=== PATIENT | female | born 1985 | race Caucasian/White ===

== ENCOUNTER → 2021-02-06 14:08 | Outpatient (CLI) | payer BC, SELFPAY ==
[2021-02-11 13:15] LABS: HPV APTIMA, High Risk Negative (Negative)
== END ==
PROVIDERS: Visit Provider Obstetrics & Gynecology
DX: Z12.4 Encounter for screening for malignant neoplasm of cervix (principal)
CPT/HCPCS: 87624; 88175; G0145

== ENCOUNTER → 2021-03-18 | Outpatient (CLI) | payer BC, SELFPAY | END | disposition home or self-care (01) | LOC: LABSPEC 15:40 | PROVIDERS: Visit Provider Student in an Organized Health Care Education/Training Program | DX: R31.9 Hematuria, unspecified (principal) | CPT/HCPCS: 87086 ==

== ENCOUNTER → 2021-03-23 07:07 | Outpatient (CLI) | payer BC, SELFPAY ==
[2021-03-23 08:02] LABS: AST(SGOT) 9 U/L (15-37); Alanine Aminotransfer ALT/SGPT 16 U/L (13-56); Albumin, Serum 3.6 g/dL (3.2-5.0); Alkaline Phosphatase 95 U/L (45-117); Bilirubin, Direct 0.09 mg/dL (0.00-0.30); Cholesterol 125 mg/dL (200); Globulin 4.5 g/dL (2.2-4.2); High Density Lipoprotein 28 mg/dL; Protein, Total 8.1 g/dL (6.4-8.2); Triglycerides 127 mg/dL; Very Low Density Lipoprotein 25 mg/dL (5-40)
== END ==
PROVIDERS: PCP Student in an Organized Health Care Education/Training Program; Visit Provider Internal Medicine Cardiovascular Disease
DX: E78.00 Pure hypercholesterolemia, unspecified (principal)
CPT/HCPCS: 36415; 80061; 80076

== ENCOUNTER → 2021-04-17 08:49 | Outpatient (CLI) | payer BC, SELFPAY ==
--- NOTE | 2021-04-17 08:55 | RDU_ITS ---
Reason For Study: Hypertension Right Renal Artery Left Renal Artery Right renal artery ostium 111/36.4 Left renal artery ostium 123.4/32.7 RSV/EDV. PSV/EDV. Right renal artery proximal Left renal artery proximal PSV/EDV 179.8/50.5 PSV/EDV. 138.9/45.6 . Right renal artery mid 179.8/50.5 Left renal artery mid 136.3/32.7 PSV/EDV. PSV/EDV . Right renal artery distal Left renal artery distal 157/35.2 161.5/44.8 PSV/EDV. PSV/EDV. Right Renal Parenchyma Left Renal Parenchyma Upper Pole Medula 28.9/11.5 Left upper pole medulla 36.2/15.2 PSV/EDV. PSV/EDV . Right upper pole medulla EDR 0.40 . Left upper pole medulla EDR 0.42 . Right upper pole medulla R.I. Left upper pole medulla R.I. 0.58 . 0.60 . UP Cortex 23.4/8.8 PSV/EDV. Upper Terrence Cortx 20.6/7.9 PSV/EDV. Left upper pole cortex EDR 0.38 . Right upper pole cortex EDR 0.38 . Left upper pole cortex R.I. 0.62 . Right upper pole cortex R.I. 0.62 . Left lower Pole medulla 35.3/13.3 Right lower Pole medulla 30.7/12.4 PSV/EDV . PSV/EDV . Left lower pole medulla EDR 0.38 . Right lower pole medulla EDR 0.40 . Left lower pole medulla R.I. 0.62 . Right lower pole medulla R.I. Lower Pole Cortx 23.4/10.6 PSV/EDV. 0.60 . Left lower pole cortex EDR 0.45 . Lower Pole Cortex 23.4/8.8 PSV/EDV. Left lower pole cortex R.I. 0.55 . Right lower pole cortex EDR 0.38 . Left Renal Hilar Right lower pole cortex R.I. 0.62 . LT Hilar avg 70.9/23.4 PSV/EDV . Right Renal Hilar Left hilar acceleration time 0.50 Right Hilar avg 65.4/24.3 PSV/EDV. m/sec. Right hilar acceleration time 40 Left Renal Dimensions m/sec. Left kidney size 10.15 cm . Right Renal Dimensions Left cortical dimension 1.73 cm . Right kidney size 9.82 cm . Right cortical dimension 1.80 cm . Aorta Proximal abdominal aorta 1.40 x 1.35 cm . Proximal abdominal aorta peak systolic velocity is 119.9 cm/sec . Distal abdominal aorta 1.42/1.46 cm . Distal abdominal aorta peak systolic velocity is 148.4 cm/sec . VL/Renal Artery Duplex Ultrasound Interpretation Summary Maximal aortic dimensions distally at 1.42 x 1.46 cm diameter which is normal. Velocities are elevated greater than 100 cm/s within the abdominal aorta which invalidates renal artery to aortic ratio By velocity analysis less then 60% stenosis bilateral renal arteries Right renal length 9.82 cm, normal Left renal length 10.15 cm, normal Ordering Physician: Tayo Grimes Referring Physician: Mehrdad Boone Performed By: Kelli March RVT
== END ==
PROVIDERS: PCP Student in an Organized Health Care Education/Training Program; Referring Provider Internal Medicine Cardiovascular Disease; Visit Provider Internal Medicine Cardiovascular Disease
DX: I10 Essential (primary) hypertension (principal)
CPT/HCPCS: 93975

== ENCOUNTER 2021-05-09 10:45 | Day surgery (SDC) | payer BC, SELFPAY ==
[2021-05-09] VITALS (7 sets, daily range): BP systolic 107–134; BP diastolic 57–82; PULSE 64–94; RESP 16–106; TEMP 36.2–36.8; O2SAT 99–100; BMI 42.3
--- NOTE | 2021-05-09 11:30 | HP.PCM_ITS ---
History and Physical Date of Admission: 05/09/21 [facility] Visit Reasons: est care Allergies amoxicillin Allergy (Severe, Verified 03/21/21 14:48) Rash, emesis azithromycin Allergy (Severe, Verified 03/21/21 14:48) Anaphylaxis amlodipine Adverse Reaction (Intermediate, Verified 03/21/21 14:48) edema to pedals and ankles [facility] Medical History (Updated 04/15/21 @ 15:[address] Cheung Friend, DO) Abdominal pain Abnormal ECG during exercise stress test Essential hypertension Family history of cardiomyopathy Family history of cardiovascular disease GERD (gastroesophageal reflux disease) Mild intermittent asthma without complication Mixed hyperlipidemia Sleep apnea Family History Father CAD (coronary artery disease) CHF (congestive heart failure) History of coronary artery bypass surgery Diabetes Mother Diabetes Grandfather CAD (coronary artery disease) History of coronary artery bypass surgery Social History Smoking Status: Never smoker alcohol intake: never substance use type: does not use caffeine: Yes Type: coffee Number of servings: 1 HPI HPI Details: PAYTON GRANT, is a 35 F who presents to the office today for She has been diagnosed with GERD. For the last year and a half she has been hav ing RLQ pain that comes and goes. Worked up for ovarian cyst. During transvaginal US performed in gynecology office she was told there is a lot of bowel in that area making it difficult to view ovary. Strong family history of diverticulitis, bowel perforation with following infection and . Grandfather was going to need a bridge surgery due to stool being present in urine. ROS Gastro GI: Positive for abdominal pain and heartburn Exam Const General: cooperative and comfortable Nutritional Appearance: average body habitus and well nourished [facility] Head: normal to inspection Ears: hearing grossly normal bilaterally Nose: external nose normal Face and sinus: normal facial exam Mouth: oral mucosae normal Throat: posterior oropharynx normal Eyes General: appearance normal, both eyes and all related structures Neck Neck: normal visual inspection Chest Chest palpation & inspection: normal inspection of the chest and normal palpation of entire chest wall Resp Effort & Inspection: normal respiratory effort Auscultation: Bilateral: Clear to Auscultation Cardio Palpation: normal PMI Rate: regular rate Rhythm: regular rhythm GI Inspection: normal to inspection Auscultation: normal bowel sounds Percussion: normal to percussion Palpation: no hepatosplenomegaly Skin General: no rashes or lesions noted Neuro General: patient alert Extrem General: normal to inspection Psych Affect: normal affect Quality Reporting Tobacco Screening ([facility]) Smoking Status: Never smoker Assessment and Plan Assessment and Plan (1) Abdominal pain: Status: Acute Plan - Dr. Cheung Friend, DO: Her abdominal pain in the right lower quadrant could be due to mesenteric adenitis, epiploic appendagitis, inflammatory bowel disease. We will perform an upper endoscopy. Pending the findings she will likely need imaging of her abdomen and pelvis with a CT scan. (2) GERD (gastroesophageal reflux disease): Status: Acute Plan - Dr. Cheung Friend, DO: We will perform endoscopy to evaluate her upper GI tract. She does have a history of gastroesophageal reflux disease for 5 years. Therefore she needs to be screened for Dye's esophagus. She is on pantoprazole therapy. We will continue that for now. I have re-examined the patient. There are no clinical changes since date of exam.
[2021-05-09 11:37] LABS: Internal QC Validated? YES +Cl - CLEAR BKGD; Pregnancy, Urine Negative Negative
[2021-05-09] MEDS: Lactated Ringers 1,000 ML 15 ML IV (11:43)
--- NOTE | 2021-05-09 11:45 | EGD_PTH ---
PATIENT: PAYTON GRANT LOC: [facility] U#:[id number] AGE/SX: 35/F ROOM: RE05/09/[address]: Dr. Jonatan Sommer DO : 1985 BED: DIS: 05/09/2021 SPEC #: [id number] RECD: 05/09/21 12:49 STATUS: RADHA REAngel #: [id number] LUPE: 05/09/21 11:[address]: Jonatan Sommer DEPT: SURGICAL PATHOLOGY RECD BY: Aishwarya Caldwell ENTERED: 05/09/21 13:21 SP TYPE: EGD BIOPSY OT DR: Dr. Mehrdad Boone DO Tissues: A - Duodenum, NOS B - Gastric mucous membrane C - Esophagus, NOS D - Ileum, NOS E - COLON BIOPSY Procedures: Special Stain Group II Surgery Specimen Level IV Alcian Blue/PAS (control) HEADER OPERATION: Colonoscopy, EGD ([facility]) PRE-OP DIAGNOSIS: Abdominal pain, GERD TISSUE SUBMITTED: A ? Duodenum biopsy, B ? Gastric antrum biopsy for histo and H. pylori, C ? Distal esophagus biopsy, D ? Terminal ileum biopsy, E ? Random colonic biopsy MICROSCOPIC DIAGNOSIS A. Duodenum, biopsy: No pathologic change. B. Gastric antrum, biopsy: Chronic gastritis. See comment. C. Distal esophagus, biopsy: Gastroesophageal junctional mucosa with chronic inflammation and focal acute inflammation. No evidence of intestinal metaplasia. Focal changes of reflux. See comment. D. Terminal ileum, biopsy: No pathologic change. E. Colon, random biopsy: No pathologic change. AM:brandie 05/13/2021 COMMENT B. The results of immunohistochemistry for Helicobacter pylori will be reported separately ([id number]). C. Alcian blue/PAS stain with matched control supports the above diagnosis. MICROSCOPIC DESCRIPTION Slides are reviewed. GROSS DESCRIPTION A - Received in fixative is one container labeled with the patient's name and designated duodenum biopsy. The specimen consists of multiple irregular fragments of light lynch soft tissue that in aggregate measure 0.8 x 0.2 x 0.1 cm. The specimen is totally submitted in one cassette. B - Received in fixative is one container labeled with the patient's name and designated gastric antrum biopsy. The specimen consists of one irregular fragment of light lynch soft tissue that measures 0.4 x 0.4 x 0.1 cm. The specimen is totally submitted in one cassette. C - Received in fixative is one container labeled with the patient's name and designated distal esophagus biopsy. The specimen consists of two irregular fragments of light lynch soft tissue that in aggregate measure 0.5 x 0.4 x 0.1 cm. The specimen is totally submitted in one cassette. D - Received in fixative is one container labeled with the patient's name and designated terminal ileum biopsy. The specimen consists of multiple irregular fragments of light lynch soft tissue that in aggregate measure 0.5 x 0.3 x 1 cm. The specimen is totally submitted in one cassette. E - Received in fixative is one container labeled with the patient's name and designated random colonic biopsy. The specimen consists of multiple irregular fragments of light lynch soft tissue that in aggregate measure 1 x 0.3 x 0.1 cm. The specimen is totally submitted in one cassette. / SJ:rg 05/09/21 TC:2 CPT: 45283 x5, 08491
--- NOTE | 2021-05-09 11:45 | IMM_PTH ---
PATIENT: PAYTON GRANT LOC: EN U#:[id number] AGE/SX: 35/F ROOM: RE05/09/[address]: Dr. Jonatan Sommer DO : 1985 BED: DIS: 05/09/2021 SPEC #: [id number] RECD: 05/09/21 13:27 STATUS: RADHA REAngel #: [id number] LUPE: 05/09/21 11:[address]: Jonatan Sommer DEPT: IMMUNOHISTOCHEMISTRY RECD BY: Leann Yin ENTERED: 05/09/21 13:27 SP TYPE: IMMUNO OTHR DR: Dr. Mehrdad Boone DO Tissues: B - Stomach, NOS Procedures: H Pylori (initial) PHYSICIAN & INSTITUTION [place] [id number] SPECIMEN INFORMATION: Tissue Source: B ? Gastric antrum biopsy Clinical Info: Abdominal pain, GERD Specimen Number: [id number] CPT code: 80144 METHODOLOGY: Deparaffinized sections of prefer/formalin-fixed tissue or PAP/DQ stained slides are incubated with monoclonal/polyclonal antibodies/oligonucleotide probes. Localization is made via biotin free immunoperoxidase method. Appropriate controls are performed and reacted as expected. Results on target cell population are indicated in the following table: RESULTS: ANTIBODY / CLONE RESULT Block B H Pylori (polyclonal) negative These tests were developed and their performance characteristics determined by [facility]. They may not have been cleared or approved by the U.S. Food and Drug Administration. The FDA has determined that such clearance or approval is not necessary. INTERPRETATION: B. Gastric antrum, biopsy: Negative for Helicobacter pylori organisms. SJ:brandie 05/13/2021
--- NOTE | 2021-05-09 12:01 | OP.EGD_ITS ---
Patient Name: Jayde Mena Procedure Date: 05/09/2021 11:32 AM Date of : 1985 Age: 35 Procedure: Upper GI endoscopy Indications: Epigastric abdominal pain, Abdominal pain in the right upper quadrant Providers: Jonatan Sommer DO Medicines: See the Anesthesia note for documentation of the administered medications Patient Profile: This is a 35 year old female. Refer to note in patient chart for documentation of history and physical. Patient has symptoms of acute abdominal cramping, acute abdominal distention and acute epigastric abdominal pain. Complications: No immediate complications. Procedure: Pre-Anesthesia Assessment: - Prior to the procedure, a History and Physical was performed, and patient medications and allergies were reviewed. The patient is competent. The risks and benefits of the procedure and the sedation options and risks were discussed with the patient. All questions were answered and informed consent was obtained. Patient identification and proposed procedure were verified by the physician in the pre-procedure area. Mental Status Examination: alert and oriented. Airway Examination: normal oropharyngeal airway and neck mobility. Respiratory Examination: clear to auscultation. CV Examination: normal. Prophylactic Antibiotics: The patient does not require prophylactic antibiotics. Prior Anticoagulants: The patient has taken no previous anticoagulant or antiplatelet agents. After reviewing the risks and benefits, the patient was deemed in satisfactory condition to undergo the procedure. The anesthesia plan was to use moderate sedation / analgesia (conscious sedation). Immediately prior to administration of medications, the patient was re-assessed for adequacy to receive sedatives. The heart rate, respiratory rate, oxygen saturations, blood pressure, adequacy of pulmonary ventilation, and response to care were monitored throughout the procedure. The physical status of the patient was re-assessed after the procedure. After obtaining informed consent, the endoscope was passed under direct vision. Throughout the procedure, the patient's blood pressure, pulse, and oxygen saturations were monitored continuously. The Endoscope was introduced through the mouth, and advanced to the second part of duodenum. The upper GI endoscopy was accomplished without difficulty. The patient tolerated the procedure well. Moderate Sedation: Moderate (conscious) sedation was administered by the endoscopy nurse and supervised by the endoscopist. The patient's oxygen saturation, heart rate, blood pressure and response to care were monitored. Total physician intraservice time was 15 minutes. Scope In: 11:54:30 AM Scope Out: 11:58:28 AM Total Procedure Duration Time 0 hours 3 minutes 58 seconds Findings: LA Grade A (one or more mucosal breaks less than 5 mm, not extending between tops of 2 mucosal folds) esophagitis with no bleeding was found 34 to 35 cm from the incisors. Biopsies were taken with a cold forceps for histology. Verification of patient identification for the specimen was done. Estimated blood loss was minimal. Patchy mildly erythematous mucosa without bleeding was found in the gastric antrum. Biopsies were taken with a cold forceps for histology. Verification of patient identification for the specimen was done. Estimated blood loss was minimal. The second portion of the duodenum was normal. Biopsies were taken with a cold forceps for histology. Verification of patient identification for the specimen was done. Estimated blood loss was minimal. Impression: - LA Grade A reflux esophagitis. Biopsied. - Erythematous mucosa in the antrum. Biopsied. - Normal second portion of the duodenum. Biopsied. Recommendation: - Discharge patient to home. - Resume previous diet. - Continue present medications. - Await pathology results. - Return to my office in 2 months. Procedure Code(s): --- Professional --- 13121, Esophagogastroduodenoscopy, flexible, transoral; with biopsy, single or multiple 63406, 59, Moderate sedation services provided by the same physician or other qualified health neurocritical care physician performing the diagnostic or therapeutic service that the sedation supports, requiring the presence of an independent trained observer to assist in the monitoring of the patient's level of consciousness and physiological status; initial 15 minutes of intraservice time, patient age 5 years or older CPT copyright 2017 [employer]. All rights reserved. The codes documented in this report are preliminary and upon unclaimed property officer review may be revised to meet current compliance requirements. Jonatan Sommer DO 05/09/2021 12:01:42 PM This report has been signed electronically. Number of Addenda: 1 Note Initiated On: 05/09/2021 11:32 AM Addendum Number: 1 Addendum Date: 01/15/2022 7:32:40 AM MAC was used instead of moderate sedation for the patient. Jonatan Sommer DO 01/15/2022 7:32:45 AM This report has been signed electronically.
--- NOTE | 2021-05-09 12:03 | OP.CCLET_ITS ---
01/15/2022 Mehdrad Boone [address] [place] [address] Re : Upper GI endoscopy procedure for Jayde Mena Dear Dr. Boone This procedure was performed on April. My impressions and recommendations are as follows: Impressions : - LA Grade A reflux esophagitis. Biopsied. - Erythematous mucosa in the antrum. Biopsied. - Normal second portion of the duodenum. Biopsied. Recommendations : - Discharge patient to home. - Resume previous diet. - Continue present medications. - Await pathology results. - Return to my office in 2 months. My findings are described in the full procedure note, which is enclosed. If I can be of further assistance, please feel free to contact me at . Sincerely, Jonatan Sommer, 05/09/2021 12:01:42 PM This report has been signed electronically.
--- NOTE | 2021-05-09 12:29 | OP.CCLET_ITS ---
01/15/2022 Mehrdad Boone [address] [place] [address] Re : Colonoscopy procedure for Jayde Mena Dear Dr. Boone This procedure was performed on April. My impressions and recommendations are as follows: Impressions : - Diverticulosis in the sigmoid colon. - Redundant colon. - Congested mucosa in the transverse colon and at the hepatic flexure. Biopsied. - The examined portion of the ileum was normal. Biopsied. Recommendations : - Discharge patient to home. - Resume previous diet. - Continue present medications. - Await pathology results. - Repeat colonoscopy in 5 years for surveillance based on pathology results. - Return to GI office in 1 week. My findings are described in the full procedure note, which is enclosed. If I can be of further assistance, please feel free to contact me at . Sincerely, Jonatan Sommer, 05/09/2021 12:29:28 PM This report has been signed electronically.
--- NOTE | 2021-05-09 12:29 | OP.COLON_ITS ---
Patient Name: Jayde Mena Procedure Date: 05/09/2021 12:01 PM Date of : 1985 Age: 35 Procedure: Colonoscopy Indications: Abdominal pain in the right lower quadrant Providers: Jonatan Sommer DO Medicines: See the Anesthesia note for documentation of the administered medications Patient Profile: This is a 35 year old female. Refer to note in patient chart for documentation of history and physical. Patient has symptoms of acute abdominal cramping, acute abdominal distention and acute epigastric abdominal pain. Last Colonoscopy: none. The patient's first colonoscopy is today. Complications: No immediate complications. Procedure: Pre-Anesthesia Assessment: - Prior to the procedure, a History and Physical was performed, and patient medications and allergies were reviewed. The patient is competent. The risks and benefits of the procedure and the sedation options and risks were discussed with the patient. All questions were answered and informed consent was obtained. Patient identification and proposed procedure were verified by the physician in the pre-procedure area. Mental Status Examination: alert and oriented. Airway Examination: normal oropharyngeal airway and neck mobility. Respiratory Examination: clear to auscultation. CV Examination: normal. Prophylactic Antibiotics: The patient does not require prophylactic antibiotics. Prior Anticoagulants: The patient has taken no previous anticoagulant or antiplatelet agents. After reviewing the risks and benefits, the patient was deemed in satisfactory condition to undergo the procedure. The anesthesia plan was to use moderate sedation / analgesia (conscious sedation). Immediately prior to administration of medications, the patient was re-assessed for adequacy to receive sedatives. The heart rate, respiratory rate, oxygen saturations, blood pressure, adequacy of pulmonary ventilation, and response to care were monitored throughout the procedure. The physical status of the patient was re-assessed after the procedure. After I obtained informed consent, the scope was passed under direct vision. Throughout the procedure, the patient's blood pressure, pulse, and oxygen saturations were monitored continuously. The pediatric colonoscope was introduced through the anus and advanced to the terminal ileum. The colonoscopy was performed without difficulty. The patient tolerated the procedure well. The quality of the bowel preparation was good. Moderate Sedation: Moderate (conscious) sedation was administered by the endoscopy nurse and supervised by the endoscopist. The patient's oxygen saturation, heart rate, blood pressure and response to care were monitored. Total physician intraservice time was 15 minutes. Scope In: 12:04:05 PM Scope Withdrawal Time 0 hours 11 minutes 9 seconds Scope Out: 12:24:05 PM Total Procedure Duration Time 0 hours 20 minutes 0 seconds Findings: The perianal and digital rectal examinations were normal. A single small-mouthed diverticulum was found in the sigmoid colon. The hepatic flexure was moderately redundant. Advancing the scope required using manual pressure. An area of mildly congested mucosa was found in the transverse colon and at the hepatic flexure. Biopsies were taken with a cold forceps for histology. Verification of patient identification for the specimen was done. Estimated blood loss was minimal. The terminal ileum appeared normal. Biopsies were taken with a cold forceps for histology. Estimated blood loss was minimal. Impression: - Diverticulosis in the sigmoid colon. - Redundant colon. - Congested mucosa in the transverse colon and at the hepatic flexure. Biopsied. - The examined portion of the ileum was normal. Biopsied. Recommendation: - Discharge patient to home. - Resume previous diet. - Continue present medications. - Await pathology results. - Repeat colonoscopy in 5 years for surveillance based on pathology results. - Return to GI office in 1 week. Procedure Code(s): --- Professional --- 14804, Colonoscopy, flexible; with biopsy, single or multiple 01623, 59, Moderate sedation services provided by the same physician or other qualified health group care worker performing the diagnostic or therapeutic service that the sedation supports, requiring the presence of an independent trained observer to assist in the monitoring of the patient's level of consciousness and physiological status; initial 15 minutes of intraservice time, patient age 5 years or older CPT copyright 2017 [employer]. All rights reserved. The codes documented in this report are preliminary and upon net fisher review may be revised to meet current compliance requirements. Jonatan Sommer DO 05/09/2021 12:29:28 PM This report has been signed electronically. Number of Addenda: 1 Note Initiated On: 05/09/2021 12:01 PM Addendum Number: 1 Addendum Date: 01/15/2022 7:32:54 AM MAC was used instead of moderate sedation for the patient. Jonatan Sommer DO 01/15/2022 7:32:59 AM This report has been signed electronically.
== END 2021-05-09 13:38 | disposition home or self-care (01) ==
LOC: EN 10:46 → AC 10:48
PROVIDERS: Anesthesiology; PCP Student in an Organized Health Care Education/Training Program; Referring Provider Student in an Organized Health Care Education/Training Program; Visit Provider Internal Medicine Gastroenterology
PROC: 0DJD8ZZ Inspection of Lower Intestinal Tract, Via Natural or Artificial Opening Endoscopic (ICD-10-PCS; CPT 45378; principal; 2021-05-09 11:40)
DX: K29.50 Unspecified chronic gastritis without bleeding (principal); K57.30 Diverticulosis of large intestine without perforation or abscess without bleeding; K21.00 Gastro-esophageal reflux disease with esophagitis, without bleeding; Q43.8 Other specified congenital malformations of intestine; I10 Essential (primary) hypertension; E78.2 Mixed hyperlipidemia; J45.20 Mild intermittent asthma, uncomplicated; G47.30 Sleep apnea, unspecified; Z79.899 Other long term (current) drug therapy
CPT/HCPCS: 43239; 45380; 81025; 88305; 88313; 88342; J7120; J2405

== ENCOUNTER 2021-06-24 15:49 | Outpatient (CLI) | payer BC, SELFPAY ==
--- NOTE | 2021-06-24 15:58 | CT_ITS ---
EXAM: CT ABDOMEN AND PELVIS WITH INTRAVENOUS CONTRAST CLINICAL INDICATION: RLQ abd pain, redundant colon, sigmoid diverticulum -- with oral and IV contrast TECHNIQUE: Helically acquired images were obtained of the abdomen and pelvis with intravenous contrast. CTDIvol = ( 18.47 ) mGy, DLP = ( 1262.25 ) mGycm This CT exam was performed using one or more of the following dose reduction techniques: automated exposure control, adjustment of the mA and/or kV according to patient size, and/or use of iterative reconstruction technique. This report was created using [employer] report [employer] technology. CONTRAST: Oral and amp; IV Readi-CAT and amp; 100mL Isovue-300 COMPARISON: None. FINDINGS: LOWER THORAX: Unremarkable. Lung bases are clear. No cardiomegaly. No significant pericardial effusion. ABDOMEN: LIVER: Unremarkable. Homogeneous. No focal mass. GALLBLADDER AND BILE DUCTS: Unremarkable. No calcified gallstones. No gallbladder distention or wall edema. No intra- or extrahepatic biliary ductal dilation. PANCREAS: Unremarkable. No focal cystic or solid mass. SPLEEN: Unremarkable. Normal size without focal cystic or solid mass. ADRENALS: Unremarkable. No nodules. KIDNEYS AND URETERS: Unremarkable. Normal renal size and position. No hydronephrosis. STOMACH AND BOWEL: Unremarkable. No stomach or bowel distention. No focal inflammatory change. PELVIS: APPENDIX: No evidence of acute appendicitis. BLADDER: Unremarkable. REPRODUCTIVE: Unremarkable as visualized. No mass. ABDOMEN and PELVIS: INTRAPERITONEAL SPACE: Unremarkable. No ascites or other fluid collection. No free air. BONES/JOINTS: Unremarkable. No suspicious lytic or blastic abnormality. SOFT TISSUES: Unremarkable. No discrete abdominal or pelvic wall hernia. VASCULATURE: Unremarkable. Abdominal aorta is non-dilated. LYMPH NODES: Unremarkable. No enlarged lymph nodes. CT/Abdomen/Pelvis WITH Contrast IMPRESSION: No acute or inflammatory disease or bowel obstruction. Electronically Signed: Rishabh Oviedo MD at 4:56 EST ,
[2021-06-24 16:20] LABS: CREATININE FINGERSTICK 0.8 mg/dL (0.55-1.02); EGFR FINGERSTICK > 60.0000 mL/min (>60)
== END 2021-06-24 23:59 | disposition home or self-care (01) ==
LOC: CT 15:53
PROVIDERS: PCP Student in an Organized Health Care Education/Training Program; Referring Provider Nurse Practitioner Adult Health; Visit Provider Nurse Practitioner Adult Health
DX: R10.31 Right lower quadrant pain (principal); Q43.8 Other specified congenital malformations of intestine
CPT/HCPCS: 74177; Q9967

== ENCOUNTER → 2022-02-25 | Outpatient (CLI) | payer BC, SELFPAY ==
[2022-02-25 07:48] LABS: AST(SGOT) 9 U/L (15-37); Alanine Aminotransfer ALT/SGPT 17 U/L (13-56); Albumin, Serum 3.7 g/dL (3.2-5.0); Alkaline Phosphatase 97 U/L (45-117); Bilirubin, Direct 0.11 mg/dL (0.00-0.30); Cholesterol 120 mg/dL (200); Globulin 4.1 g/dL (2.2-4.2); High Density Lipoprotein 29 mg/dL; Protein, Total 7.8 g/dL (6.4-8.2); Triglycerides 142 mg/dL; Very Low Density Lipoprotein 28 mg/dL (5-40)
== END | disposition home or self-care (01) ==
LOC: LAB 06:16
PROVIDERS: PCP Student in an Organized Health Care Education/Training Program; Referring Provider Physician Assistant Medical; Visit Provider Physician Assistant Medical
DX: E78.2 Mixed hyperlipidemia (principal)
CPT/HCPCS: 36415; 80061; 80076

== ENCOUNTER → 2022-04-15 | Outpatient (CLI) | payer BC, SELFPAY | END | disposition home or self-care (01) | PROVIDERS: PCP Student in an Organized Health Care Education/Training Program; Referring Provider Physician Assistant Medical; Visit Provider Physician Assistant Medical | DX: G47.33 Obstructive sleep apnea (adult) (pediatric) (principal); I10 Essential (primary) hypertension | CPT/HCPCS: 95810 ==

== ENCOUNTER 2022-06-13 12:13 | Day surgery (SDC) | payer BC, SELFPAY ==
[2022-06-13 12:47] LABS: Internal QC Validated? YES +Cl - CLEAR BKGD; Pregnancy, Urine Negative Negative
[2022-06-13 12:53] VITALS: BP 128/68; PULSE 95; RESP 18; TEMP 36.7; O2SAT 100; BMI 48.4
[2022-06-13] MEDS: Lactated Ringers 1,000 ML 15 ML IV (12:57)
[2022-06-13] MEDS: Celecoxib 200 MG Capsule 400 MG PO (12:59)
[2022-06-13] MEDS: Acetaminophen 500 MG Tablet 1000 MG PO (12:59)
--- NOTE | 2022-06-13 13:53 | PCM.HP.BLA ---
History and Physical Date of Admission: 06/13/22 36-year-old male who does not desire future childbearing and failed a Mirena desires definitive therapy for her heavy menstrual bleeding. She denies any chest pain, shortness of breath, cough fevers or chills. Past medical history significant for hypertension, sleep apnea, morbid obesity with BMI of 48, migraine headaches, intermittent asthma, hyperlipidemia, and GERD Allergies are amlodipine, amoxicillin, azithromycin Past surgical history none Social history: She denies any tobacco alcohol or drug use Review of systems: General no fevers or chills Cardiac: Denies chest pain or shortness of breath Respiratory: Denies shortness of breath or cough Heme: Denies any history of prolonged bleeding, easy bruising or DVT Physical exam: Awake, alert, no acute At her preoperative visit on 06/04/2022 her vitals were blood pressure 114/76, pulse 89, respirations 16, height 5 foot 3 inches, weight 274 pounds Lungs clear to all station bilateral Heart S1-S2 regular rate and rhythm Assessment & Plan Assessment/Plan (1) Menorrhagia: PLAN: Risk benefits and alternatives to endometrial ablation were discussed with the patient, her questions were answered to her satisfaction she desires to proceed. She understands this is a complete contraindication to future childbearing. She understands risk of failure and post ablation syndrome.
[2022-06-13] MEDS: Lidocaine 1% /Epi 1:100 (20ml) 20 ML Vial (14:10)
--- NOTE | 2022-06-13 14:27 | DCINST_ITS ---
Discharge Instructions Diet Discharge Diet: No restrictions Activity May resume sexual activity in: 2 weeks Lifting Restrictions: none Dressing / Incision Call your doctor if your incision/area has: Sudden Increased Bleeding and Foul Smelling Discharge Call your doctor if you observe: Fever of 101 or Higher and Using more than 1 pad per hour (for 2 hrs in a row) Follow Up Care Please Follow Up With: Brenda Pardo MD When: 2-4 weeks or as needed. Call [phone] to make an appointment or with any concerns. Test Results: Test results from this visit will be discussed in further detail at your follow- up appointment, if applicable. Discharge Plan Admission Primary Reason for Your Visit: Endometrial ablation Attending Provider: Brenda Pardo Primary Care Provider: Mehrdad Boone Discharge Orders/Prescriptions Prescriptions: No Action budesonide-formoterol 160-4.5 mcg/actuation HFA aerosol inhaler 1 puff inhalation DAILY PRN (Reason: BREATHING) cetirizine 10 mg tablet 10 mg PO QHS cyanocobalamin (vitamin B-12) 250 mcg tablet 250 mcg PO DAILY magnesium oxide 250 mg magnesium tablet 250 mg PO DAILY topiramate 50 mg tablet 50 mg PO BID cholecalciferol (vitamin D3) 25 mcg (1,000 unit) tablet 25 mcg PO DAILY riboflavin (vitamin B2) 400 mg tablet 400 mg PO DAILY furosemide [Lasix] 20 mg tablet 20 mg PO DAILY PRN (Reason: edema) Qty: 30 0RF pantoprazole 40 mg tablet,delayed release (DR/EC) 40 mg PO QAM Qty: 90 3RF atorvastatin 20 mg tablet 20 mg PO DAILY lisinopril 40 mg tablet 40 mg PO DAILY Qty: 90 3RF Referrals / Follow Up: Mehrdad Boone DO [Primary Care Provider] - Disposition Disposition (needs filled in before D/C Order can be placed): Home, Self Care
--- NOTE | 2022-06-13 14:27 | PCM.OPRPT ---
Problems Associated Problem List Diagnoses (1) Menorrhagia: Report of Operation Date of Procedure: 06/13/22 Pre-Operative Diagnosis: menorrhagia Post-Operative Diagnosis: same Surgery/Procedure Performed:: hysteroscopy with endometrial ablation Description of Surgical Findings:: normal cervix and vagina, normal vulva. Normal endometrial cavity, fibroid not visualized, both tubal ostia visualized Surgeon: Brenda Pardo edge inker uppers: None Type of Anesthesia: MAC/Supplemental/Local Anesthesiologist: Francisco Whiting Special Medications: none Specimen's removed: none Drains: none Estimated Blood Loss (mL): 10 Fluids Replaced: 600 Description of Procedure: The patient was taken to the OR where she was prepped and draped in dorsal lithotomy position. The weighted speculum was placed in the vagina and the anterior lip of the cervix was grasped with a single-tooth tenaculum. A paracervical block was administered. The cervix was dilated serially with Hegar dilators. The 5mm hysteroscope was placed into the uterine cavity and the above findings were noted. Bilateral tubal ostia were identified. The uterus sounded to 9 cm and the cervical length was 4 cm. The endometrial cavity length was 5 cm. The hysteroscope was removed. The Leigh device was set to 5 cm. The instrument was then seated into the endometrial cavity and the indicator was in the green. The cervical seal balloon was inflated and the uterine integrity test was passed. The ablation procedure was initiated and completed without interruption. During the ablation procedure gentle traction was held on the tenaculum and the Leigh device was held up against the uterine fundus. When the ablation procedure was completed the Leigh was removed. The tenaculum was removed and the tenaculum site was noted to be hemostatic. All sponge and needle counts were correct. A vaginal sweep was perform Normal Normal Normal, no fibroids or polyps noted C 5 5 4 9 were 5mm ed by me. The patient was awakened and taken to the recovery room in stable condition. Hysteroscopic ins: 150cc normal saline Hysteroscopic outs:100cc Findings: Endometrial cavity: Normal, no fibroids or polyps noted Cervix: Normal Vagina: Normal Grafts/Implants Used: none Procedure Start Time: 14:08 Procedure Stop Time: 14:18 Complications none Admit VTE Documentation VTE Present on Admission: No VTE Mechan Device Prophylaxis: SCD's VTE Pharm Prophylaxis ordered?: No Reason prophylaxis not ordered:: Procedure Not Indicated
[2022-06-13 14:30] VITALS: BP 102/58; BP 128/68; PULSE 80; RESP 16; TEMP 36.6; O2SAT 98
[2022-06-13 14:35] VITALS: BP 128/68; BP 99/56; PULSE 73; RESP 16; O2SAT 98
[2022-06-13 14:40] VITALS: BP 128/68; BP 95/57; PULSE 68; RESP 16; O2SAT 98
[2022-06-13 14:45] VITALS: BP 100/56; BP 128/68; PULSE 74; RESP 16; TEMP 36.5; O2SAT 100
[2022-06-13 15:26] VITALS: BP 128/68
== END 2022-06-13 15:38 | disposition home or self-care (01) ==
LOC: SDC 12:22 → AC 12:26
PROVIDERS: Anesthesiology; PCP Student in an Organized Health Care Education/Training Program; Referring Provider Obstetrics & Gynecology; Visit Provider Obstetrics & Gynecology
PROC: 0U5B8ZZ Destruction of Endometrium, Via Natural or Artificial Opening Endoscopic (ICD-10-PCS; CPT 58558; principal; 2022-06-13 14:20)
DX: N92.0 Excessive and frequent menstruation with regular cycle (principal); E66.01 Morbid (severe) obesity due to excess calories; Z68.42 Body mass index [BMI] 45.0-49.9, adult; I10 Essential (primary) hypertension; J45.20 Mild intermittent asthma, uncomplicated; E78.2 Mixed hyperlipidemia; G47.30 Sleep apnea, unspecified
CPT/HCPCS: 58563; 00952; 81025; J7120; J2405

== ENCOUNTER → 2022-10-11 | Outpatient (CLI) | payer BC, SELFPAY ==
[2022-10-11 09:18] LABS: AST(SGOT) 21 U/L (15-37); Alanine Aminotransfer ALT/SGPT 33 U/L (13-56); Albumin, Serum 3.7 g/dL (3.2-5.0); Alkaline Phosphatase 88 U/L (45-117); Bilirubin, Direct 0.11 mg/dL (0.00-0.30); Cholesterol 126 mg/dL (200); Globulin 4.2 g/dL (2.2-4.2); High Density Lipoprotein 28 mg/dL; Protein, Total 7.9 g/dL (6.4-8.2); Triglycerides 215 mg/dL; Very Low Density Lipoprotein 43 mg/dL (5-40)
== END | disposition home or self-care (01) ==
LOC: LAB 07:24
PROVIDERS: PCP Student in an Organized Health Care Education/Training Program; Referring Provider Physician Assistant Medical; Visit Provider Physician Assistant Medical
DX: E78.2 Mixed hyperlipidemia (principal)
CPT/HCPCS: 36415; 80061; 80076

== ENCOUNTER → 2023-04-16 | Outpatient (CLI) | payer BC, SELFPAY ==
[2023-04-16 08:59] LABS: AST(SGOT) 11 U/L (15-37); Alanine Aminotransfer ALT/SGPT 19 U/L (13-56); Albumin, Serum 3.8 g/dL (3.2-5.0); Alkaline Phosphatase 84 U/L (45-117); Bilirubin, Direct 0.11 mg/dL (0.00-0.30); Cholesterol 105 mg/dL (200); Globulin 4.2 g/dL (2.2-4.2); High Density Lipoprotein 24 mg/dL; Triglycerides 170 mg/dL; Very Low Density Lipoprotein 34 mg/dL (5-40)
== END | disposition home or self-care (01) ==
LOC: LAB 06:13
PROVIDERS: PCP Student in an Organized Health Care Education/Training Program; Referring Provider Physician Assistant Medical; Visit Provider Physician Assistant Medical
DX: E78.2 Mixed hyperlipidemia (principal)
CPT/HCPCS: 36415; 80061; 80076

== ENCOUNTER → 2023-10-20 | Outpatient (CLI) | payer BC, SELFPAY ==
[2023-10-20 07:15] LABS: AST(SGOT) 12 U/L (15-37); Alanine Aminotransfer ALT/SGPT 24 U/L (13-56); Albumin, Serum 3.8 g/dL (3.2-5.0); Alkaline Phosphatase 75 U/L (45-117); Bilirubin, Direct 0.13 mg/dL (0.00-0.30); Cholesterol 127 mg/dL (200); Globulin 4.2 g/dL (2.2-4.2); High Density Lipoprotein 29 mg/dL; Triglycerides 167 mg/dL; Very Low Density Lipoprotein 33 mg/dL (5-40)
== END | disposition home or self-care (01) ==
LOC: LAB 06:11
PROVIDERS: PCP Student in an Organized Health Care Education/Training Program; Referring Provider Physician Assistant Medical; Visit Provider Physician Assistant Medical
DX: E78.2 Mixed hyperlipidemia (principal)
CPT/HCPCS: 36415; 80061; 80076

== ENCOUNTER → 2024-05-09 | Outpatient (CLI) | payer BC, SELFPAY ==
[2024-05-09 07:10] LABS: AST(SGOT) 13 U/L (15-37); Alanine Aminotransfer ALT/SGPT 28 U/L (13-56); Albumin, Serum 3.9 g/dL (3.2-5.0); Alkaline Phosphatase 76 U/L (45-117); Bilirubin, Direct 0.14 mg/dL (0.00-0.30); Cholesterol 116 mg/dL (200); Globulin 3.9 g/dL (2.2-4.2); High Density Lipoprotein 37 mg/dL; Protein, Total 7.8 g/dL (6.4-8.2); Triglycerides 147 mg/dL; Very Low Density Lipoprotein 29 mg/dL (5-40)
== END | disposition home or self-care (01) ==
LOC: LAB 06:20
PROVIDERS: PCP Student in an Organized Health Care Education/Training Program; Referring Provider Physician Assistant Medical; Visit Provider Physician Assistant Medical
DX: E78.2 Mixed hyperlipidemia (principal); Z82.49 Family history of ischemic heart disease and other diseases of the circulatory system
CPT/HCPCS: 36415; 80061; 80076

== ENCOUNTER → 2024-09-12 | Outpatient (CLI) | payer BC, SELFPAY ==
--- NOTE | 2024-09-12 06:50 | MRI_ITS ---
PROCEDURE: LOWER EXT JOINT ONLY (ROUTINE) 09/12/2024 REASON FOR EXAM: PAIN, RULE OUT MEDIAL MENISCUS TEAR TECHNIQUE: MRI of the right lower Extremity. Multiplanar and multisequence images were obtained without IV contrast administration. COMPARISON: COMPARISON : None FINDINGS: Bone Marrow: There is no abnormal bone marrow signal. Effusion: No significant knee joint effusion. Soft Tissues: Ligaments and Tendons: ACL and PCL are intact. MCL and lateral collateral ligamentous complex are unremarkable. There is a slight thickened appearance of the popliteus tendon near its origin. Meniscus: No discrete meniscal tear. Cartilage: No full-thickness cartilage tear. MRI/Lower Ext Joint Only (Routine) IMPRESSION: 1. No evidence of a meniscal tear. 2. Slight thickening of the popliteus tendon near its origin, which could be t he result of tendinopathy or chronic injury. Reading Location: [id number]
[2024-09-12 10:28] LABS: AST(SGOT) 14 U/L (<=31); Alanine Aminotransfer ALT/SGPT 18 U/L (<=34); Albumin, Serum 4.3 g/dL (3.5-5.0); Alkaline Phosphatase 66 U/L (35-104); Bilirubin, Direct 0.29 mg/dL (0.00-0.30); Cholesterol 103 mg/dL (<=200); High Density Lipoprotein 36 mg/dL; Low Density Lipoprotein Calc. 50 mg/dL; Protein, Total 7.3 g/dL (5.9-8.4); Total Bilirubin 0.55 mg/dL (0.00-1.30); Triglycerides 83 mg/dL; Very Low Density Lipoprotein 17 mg/dL (5-40); cholesterol:hdl ratio screen 2.85
== END | disposition home or self-care (01) ==
PROVIDERS: Physician Assistant Medical; PCP Student in an Organized Health Care Education/Training Program; Referring Provider Orthopaedic Surgery Sports Medicine; Visit Provider Orthopaedic Surgery Sports Medicine
DX: E78.00 Pure hypercholesterolemia, unspecified (principal); M25.561 Pain in right knee
CPT/HCPCS: 36415; 73721; 80061; 80076